=== PATIENT | male | born 1965 | race Caucasian/White ===

== ENCOUNTER 2018-01-09 17:16 | Emergency (ER) | payer BC, SELFPAY ==
[2018-01-09] MEDS ORDERED: Ketorolac Tromethamine 30 MG/ML VIAL ONE (17:57)
--- NOTE | 2018-01-09 18:19 | RAD ---
RIGHT SHOULDER THREE VIEWS: 01/09/18 HISTORY: 52-year-old male with history of right shoulder pain following a slip and fall. AC and glenohumeral joint arthrosis changes. No fracture or dislocation. IMPRESSION: Degenerative changes without fracture or dislocation. POS: JEF
--- NOTE | 2018-01-09 18:53 | RAD ---
RIGHT HAND THREE VIEWS 01/09/18 HISTORY: 52-year-old male with history of right hand injury following a fall. The fifth finger is flexed on all the images and is poorly evaluated on this study. There is a questi on of a very tiny dorsal focal area of ossification adjacent to the distal interphalangeal joint. The re does appear to be some arthrosis change of both the proximal and distal interphalangeal joints of the fifth finger. No evidence for acute fracture or dislocation. IMPRESSION: Somewhat poorly evaluated fifth finger because it is flexed on all the imaging. If that is an area of concern, then I would suggest specific three view examination of the finger proper without the flexi on. Degenerative changes of the interphalangeal joints of the fifth finger. No evidence for an acute fracture. POS: JEF
== END 2018-01-09 19:15 | disposition home or self-care (01) ==
LOC: ERS 17:16
DX: M25.511 Pain in right shoulder (principal); M79.644 Pain in right finger(s); E11.9 Type 2 diabetes mellitus without complications; I10 Essential (primary) hypertension; F41.9 Anxiety disorder, unspecified; F17.220 Nicotine dependence, chewing tobacco, uncomplicated; Z85.118 Personal history of other malignant neoplasm of bronchus and lung; W17.89XA Other fall from one level to another, initial encounter
CPT/HCPCS: 96372; J1885